=== PATIENT | female | born 1945 | race Caucasian/White ===

== ENCOUNTER → 2016-09-28 | Day surgery (SDC) | payer MEDICARE ==
[~2016-09-28] MED LIST: AL-MAG HYDROX-S30 M1 PO; ALBUTEROL17 GM INH; AMLODIPINE BESYL5 MG PO; AMOXICILLIN500 M1 PO; ASPIRIN EC81 M1 PO; ASPIRIN81 M1; ASPIRIN81 M2 PO; ASPIRIN81 MG PO; BREO ELLIPTA 21 EACH INH; BYSTOLIC5 MG PO; COLACE PO; COMBIVENT U/D3 M1 INH; COMBIVENT U/D3 M3 INH; DETROL LA2 MG PO; ENBREL; ESTRACE PO; FOLIC ACID1 MG PO; GABAPENTIN300 MG PO; LEVAQUIN PO; METHOTREXATE2.5 MG PO; MOBIC PO; MONTELUKAST SOD10 MG PO; MULTI VITAMIN1 EACH PO; MULTI-DAY VITAM1 TAB PO; MULTI-VITAMIN1 EAC1 PO; NORVASC PO; NYSTATIN5 ML PO; PREDNISONE PO; PREVACID PO; REMACADE; SYNTHROID0.05 MG PO; TREXALL5 MG PO; TRIAMTERENE-HCT1 TA6 PO; VITAMIN D1000 UNIT PO; ZANTAC150 MG PO
--- NOTE | ~2016-09-28 | OR ---
Unit #: [id number] #: [id number] Patient: BRANDT FORREST [id number] [address] [address] [id number] O MR#: [id number] NAME: BRANDT FORREST. ROOM: Date of Procedure: 09/28/2016 Admission Date: 09/28/2016 Surgeon: Wenceslao Brandt M.D. : 1945 Attending Physician: Wenceslao Brandt M.D. Primary Care Physician: Elizabeth Acevedo A.P.R.N. OPERATIVE REPORT ADDITIONAL ATTENDING PHYSICIAN Elizabeth Acevedo A.P.R.N. PREOPERATIVE DIAGNOSES The patient has presented with history of gastroesophageal reflux. She has underlying psoriatic arthropathy as well as history of bronchial asthma. In addition, she also has fatty liver. The purpose of the endoscopy is to find any esophageal varices or portal hypertensive gastropathy changes. RECOMMENDATIONS The patient is advised to take once a day PPI therapy, but she says she has very rare reflux related symptoms, which respond to Tums and in that case, there is little reason to give any additional medication. Incidentally, she had no portal hypertensive gastropathy nor any esophageal varices. The examination being only indicative of mild distal erosive esophagitis. The patient will be followed up in the office in 3 months' time. SEDATION USED MAC. DESCRIPTION OF PROCEDURE Following detailed explanation of potential risks and complications of an upper endoscopy, namely perforation, bleeding, and complications related to sedation, the patient was brought to GI lab and laid in the left lateral decubitus position. Lubricated tip of the Olympus video upper endoscope was passed through bite block into the proximal esophagus under direct vision. The entire esophageal mucosa was examined, the patient was noted to have grade 1 distal erosive esophagitis. The scope was then advanced into the gastric cavity and the latter was insufflated. Mucosa of the fundus, body, and antrum was examined and appeared unremarkable. Pylorus was intubated with visualization of the normal duodenal bulb and second and third part of the duodenum. Upon withdrawal and retroflexion, incisura, cardia, and greater curve examined and no additional findings noted. The scope was then withdrawn in the distal esophagus. The entire esophageal mucosa was examined all the way up to pharynx. No additional findings noted. The patient tolerated the procedure without any postprocedure complications. Unit #: [id number] #: [id number] Patient: BRANDT FORREST Dictated by... Karime Logan/van TD: 09/29/2016 03:16 JOB #: [id number] Sondra Phoenix M.D. OPERATIVE REPORT X Wenceslao Brandt MD X PROCEDURE OPERATIVE NOTE
[2016-09-28 09:57] LABS: BASOPHIL% 0.2 % (0-2.5); EOSINOPHIL# 0.4 X10e3 (0-0.7); EOSINOPHIL% 3.1 % (0.0-7.0); HEMOGLOBIN 12.7 gm/dL (12.0-16.0); LYMPHOCYTE# 2.3 X10e3 (1.0-3.5); MEAN CELL VOLUME 94.4 FL (83-96); MEAN CORPUSCULAR HGB CONC 31.8 g/dL (30-36); MEAN PLATELET VOLUME 9.1 FL (6.5-11.5); MONOCYTE# 0.4 X10e3 (0-1.0); MONOCYTE% 3.6 % (3.0-12.0); NEUTROPHIL% 74.1 % (40-75); PLATELET COUNT 262 X10e3 (140-420); RED BLOOD COUNT 4.24 X10e (3.90-5.30); RED CELL DISTRIBUTION WIDTH 17.3 % (11.0-15.5); WHITE BLOOD COUNT 12.1 X10e3 (4.0-10.5)
[2016-09-28 10:05] LABS: DIFF IND NO
[2016-09-28 10:39] LABS: ALBUMIN SERUM 3.6 g/dL (3.5-5.0); BILIRUBIN,TOTAL 1.5 mg/dL (0.2-2.0); BUN/CREATININE RATIO 14.16; CALCIUM SERUM 8.9 mg/dL (8.4-10.2); CREATININE SERUM 1.2 mg/dL (0.6-1.4); GLOM FILT RATE Estimated 47.2 mL/min (>60); PROTEIN TOTAL SERUM 6.7 g/dL (6.0-8.3)
[2016-09-30 21:11] LABS: ANA SCREEN Negative (Negative)
== END | disposition home or self-care (01) ==
LOC: COPS 08:51
PROVIDERS: Internal Medicine Gastroenterology
DX: K20.9 Esophagitis, unspecified (principal); L40.50 Arthropathic psoriasis, unspecified; K76.0 Fatty (change of) liver, not elsewhere classified; J45.909 Unspecified asthma, uncomplicated; E03.9 Hypothyroidism, unspecified; Z90.710 Acquired absence of both cervix and uterus; Z90.89 Acquired absence of other organs; Z90.49 Acquired absence of other specified parts of digestive tract; Z87.01 Personal history of pneumonia (recurrent); Z88.6 Allergy status to analgesic agent
CPT/HCPCS: 80053; 82103; 82728; 83540; 83550; 85025; 86038; 86039

== ENCOUNTER → 2016-10-11 | Outpatient (CLI) | payer MEDICARE | END | disposition home or self-care (01) | LOC: CSSDAY 10:04 | DX: L40.0 Psoriasis vulgaris (principal); L40.59 Other psoriatic arthropathy; Z79.899 Other long term (current) drug therapy | CPT/HCPCS: 96365; 96366; 96413; 96415; J1200; J1745 ==

== ENCOUNTER → 2016-11-08 | Outpatient (CLI) | payer MEDICARE | END | disposition home or self-care (01) | LOC: CSSDAY 10:01 | DX: L40.0 Psoriasis vulgaris (principal); L40.59 Other psoriatic arthropathy; Z79.899 Other long term (current) drug therapy | CPT/HCPCS: 96365; 96366; J1200; J1745 ==

== ENCOUNTER → 2016-12-06 | Outpatient (CLI) | payer MEDICARE | END | disposition home or self-care (01) | LOC: CSSDAY 10:05 | DX: L40.0 Psoriasis vulgaris (principal); L40.59 Other psoriatic arthropathy; Z79.899 Other long term (current) drug therapy | CPT/HCPCS: 96413; 96415; J1200; J1745 ==

== ENCOUNTER → 2017-01-03 | Outpatient (CLI) | payer MEDICARE | END | disposition home or self-care (01) | LOC: CSSDAY 10:10 | DX: L40.0 Psoriasis vulgaris (principal); L40.59 Other psoriatic arthropathy; Z79.899 Other long term (current) drug therapy | CPT/HCPCS: J1200; J1745 ==

== ENCOUNTER → 2017-01-10 | Outpatient (CLI) | payer MEDICARE | END | disposition home or self-care (01) | LOC: CSSDAY 10:00 | DX: L40.0 Psoriasis vulgaris (principal); L40.59 Other psoriatic arthropathy; Z79.899 Other long term (current) drug therapy | CPT/HCPCS: 96413; 96415; J1200; J1745 ==

== ENCOUNTER → 2017-01-10 | Outpatient (CLI) | payer MEDICARE ==
--- NOTE | ~2017-01-10 | CT57 ---
[facility] A Service of [facility] RADIOLOGY TEXT RESULTS PATIENT: BRANDT FORREST LOCATION: [place] : 47 UNIT #: [id number] AGE: [address]: Yue Gaona APRN SEX: F ORDER DR: [id number] [facility]. [place], [place] [address] [id number] O MR#: [id number] [facility] #: [id number] NAME: BRANDT FORREST. : 1945 SEX: F STUDY DATE/TIME: 01/10/2017 13:41 UNIT: [place] ROOM: STUDY DESCRIPTION: CT Chest Wo Cont Attending Physician: Yue Gaona A.P.R.N. Referring Physician: Yue Gaona A.P.R.N. Ordering Physician: Yue Gaona A.P.R.N. Primary Care Physician: Elizabeth Acevedo A.P.R.N. MEDICAL IMAGING REPORT This report is preliminary unless electronic signature is present EXAM CT chest INDICATION Abnormal chest CT. Pulmonary nodule. Restaging. TECHNIQUE CT of the thorax without contrast. Coronal and sagittal reconstructions were obtained. This CT exam was performed with one or more of the following radiation dose reduction techniques: automatic exposure control, adjustment of mA and/or kV according to patient size, and iterative reconstruction. COMPARISON CT thorax dated 09/06/2016 and 06/08/2016. FINDINGS A 4.0 mm pulmonary nodule in the left lower lobe previously measured 6.0 mm. This was a new nodule on the August 2016 study. This should indicate a benign nodule, however, an additional 12-month followup CT may be appropriate. Some ill-defined scarring or atelectasis in the left lung base is stable from at least May 2016. No new pulmonary opacities. Central airways are patent. No pathologically enlarged mediastinal or hilar lymph nodes. No pericardial or pleural effusion. Limited images of the upper abdomen were obtained. There is no acute findings. There has been prior cholecystectomy. No acute osseous abnormalities. IMPRESSION 1. 4.0 mm pulmonary nodule in the left lower lobe has decreased since STS. [facility] A Service of [facility] RADIOLOGY TEXT RESULTS PATIENT: BRANDT FORREST LOCATION: [place] : 47 UNIT #: [id number] AGE: [address]: Yue Gaona APRN SEX: F ORDER DR: the August 2016 comparison. Decrease in size is reassuring for a benign etiology. I would recommend an additional precautionary followup CT in 12 months. 2. Linear areas of presumed scarring or atelectasis in the left lung base are also unchanged or improved. These can be followed at that time as well to confirm a benign etiology. Dictated by... Camilo Hernandes M.D. THIS IS AN ELECTRONICALLY VERIFIED REPORT Camilo Hernandes M.D. at 01/11/2017 1:31 PM Riccardo TD: 01/11/2017 09:17 JOB #: [id number] MEDICAL IMAGING REPORT Page 1 of 1 COPY
== END | disposition home or self-care (01) ==
LOC: CCAT 10:01
DX: R93.8 Abnormal findings on diagnostic imaging of other specified body structures (principal); R91.1 Solitary pulmonary nodule
CPT/HCPCS: 71250

== ENCOUNTER → 2017-02-07 | Outpatient (CLI) | payer MEDICARE | END | disposition home or self-care (01) | LOC: CSSDAY 09:43 | DX: L40.0 Psoriasis vulgaris (principal); L40.59 Other psoriatic arthropathy; Z79.899 Other long term (current) drug therapy | CPT/HCPCS: 96413; 96415; J1200; J1745 ==

== ENCOUNTER → 2017-03-07 | Outpatient (CLI) | payer MEDICARE | END | disposition home or self-care (01) | LOC: CSSDAY 09:50 | DX: L40.0 Psoriasis vulgaris (principal); L40.59 Other psoriatic arthropathy; Z79.899 Other long term (current) drug therapy | CPT/HCPCS: 96413; 96415; J1200; J1745 ==